=== PATIENT | female | born 1950 | race Caucasian/White ===

== ENCOUNTER 2019-10-11 11:36 | Emergency (ER) | payer MEDICARE, MEDICAID, SELFPAY ==
--- NOTE | ~2019-10-11 | XR_ITS ---
EXAMINATION: XR chest 2V DATE: 10/11/2019 12:28 INDICATION: Shortness of breath. Cough. TECHNIQUE: Frontal and lateral views of the chest were obtained. COMPARISON: None. FINDINGS: The lungs are hyperexpanded, consistent with chronic obstructive pulmonary disease. Calcifi ed pulmonary nodules and calcified hilar and mediastinal lymph nodes are consistent with old granulom atous disease. No pleural effusion or pneumothorax. The heart size is normal. Surgical clips in the r ight upper quadrant are likely from cholecystectomy. IMPRESSION: 1. Hyperexpanded lungs, consistent with chronic obstructive pulmonary disease. Reviewed, dictated and finalized at location A.
[2019-10-11 11:51] VITALS: BP 153/105; PULSE 105; RESP 16; TEMP 36.6; O2SAT 98
--- NOTE | 2019-10-11 11:59 | ED.URI ---
HPI - URI/Sore Throat General Chief Complaint: Upper Respiratory Infection Stated Complaint: CP/SOB/HX COPD Time Seen by Provider: 10/11/19 12:00 Source: patient and RN notes reviewed Mode of arrival: ambulatory Limitations: no limitations History of Present Illness HPI Narrative: This is a 69 years old female presented office for evaluation of feeling malaise and decrease energy level for the last couple day. She always have shortness of breath and cough secondary to her COPD. What is different is her decrease of energy level, appetite, and feeling malaise. Denies sick contact at home. She tried nebulizer treatment for her cough and wheezing with minimal relief. She lives alone. Denies direct contact with COVID people. Related Data Home Medications Medication Instructions Recorded Confirmed albuterol sulfate 2 puff INHALATION QID PRN 10/11/19 10/11/19 albuterol sulfate 2.5 mg INHALATION Q4H PRN 10/11/19 10/11/19 Allergies Allergy/AdvReac Type Severity Reaction Status Date / Time No Known Allergies Allergy Mild Verified 10/11/19 12:00 Review of Systems Review of Systems: Narrative: CONSTITUTIONAL: Denies fever. Reports cold and chills ENT: Denies rhinorrhea, congestion, sore throat, otalgia. CARDIOVASCULAR: Denies chest pain, palpitation. RESPIRATORY: Reports dyspnea, wheezing, cough with chest tightness/back pain when she coughs hard GASTROINTESTINAL: Denies abdominal pain, nausea, vomiting, diarrhea. SKIN: Denies rash MUSCULOSKELETAL: Denies extremities pain NEUROLOGIC: Denies lightheaded/dizziness. All other systems reviewed are negative, except as documented in HPI. PMFSH Social History Social History Gender identity (if verbalized by the patient): Female Comments At time of signature, I agree with nursing past medical, surgical, social and family history. There is no relevant family history pertinent to the presenting complaint. Exam Narrative: Exam Narrative: GENERAL: This is a well-nourished, well-developed patient, in no apparent distress. EARS: External ears normal, auditory canals clear and without drainage, TMs normal without perforation. Hearing grossly intact. NOSE: External nose normal with no obvious nasal discharge, nares without redness, no rhinorrhea. THROAT: Mucous membranes moist, posterior pharynx clear. NECK: Neck supple, non-tender without lymphadenopathy, masses or thyromegaly. CARDIOVASCULAR: Regular rate and rhythm without murmurs, gallops, or rubs. RESPIRATORY: Wheezing noted with inspiration and expiration. Breath sounds equal bilaterally. No use of accessory muscle or tachypnea. Occasional cough noted during examination. GASTROINTESTINAL: Abdomen soft, non-tender, nondistended. Bowel sounds are active. No hepato-splenomegaly, or palpable masses. No guarding. SKIN: warm, intact with no suspicious lesions or rash, good texture and turgor. NEURO: awake, alert, and oriented to person, place and time. There were no obvious focal neurologic abnormalities. Steady gait [place] Coma Scale Eye Opening: Spontaneous 4 [place] Coma Scale Motor: Obeys Commands 6 [place] Coma Scale Verbal: Oriented 5 Course Vital Signs Vital signs: Vital Signs Temperature 97.9 F 10/11/19 11:51 Pulse Rate 105 H 10/11/19 11:51 Respiratory Rate 16 10/11/19 11:51 Blood Pressure 153/105 H 10/11/19 11:51 Pulse Oximetry 98 10/11/19 11:51 Temperature 97.9 F 10/11/19 11:51 Pulse Rate 105 H 10/11/19 11:51 Respiratory Rate 16 10/11/19 11:51 Blood Pressure 153/105 H 10/11/19 11:51 Pulse Oximetry 98 10/11/19 11:51 MDM - URI/Sore Throat MDM Narrative Medical decision making narrative: Discharge instructions reviewed with patient, as well as provided in writing per nursing staff. The instructions also include specific and strict return/GO TO THE ER as well as f/u information. All questions have been answered, and the patien
== END 2019-10-11 12:40 | disposition home or self-care (01) ==
PROVIDERS: Emergency Provider Nurse Practitioner
DX: J44.1 Chronic obstructive pulmonary disease with (acute) exacerbation (principal); Z20.828 Contact with and (suspected) exposure to other viral communicable diseases
CPT/HCPCS: 71046; 99213; G0463

== ENCOUNTER 2019-10-13 06:56 | Outpatient (NON) | payer MEDICARE, MEDICAID, SELFPAY ==
[2019-10-13 20:24] LABS: SARS-CoV-2 RNA PCR Negative
== END 2019-10-13 06:57 ==
PROVIDERS: Visit Provider Nurse Practitioner
DX: Z20.828 Contact with and (suspected) exposure to other viral communicable diseases (principal); R06.00 Dyspnea, unspecified; R05 Cough
CPT/HCPCS: 87635; C9803; U0003

== ENCOUNTER 2020-01-17 10:55 | Emergency (ER) | payer MEDICARE, MEDICAID, SELFPAY ==
[2020-01-17] VITALS (17 sets, daily range): BP systolic 131–155; BP diastolic 67–103; PULSE 82–114; RESP 12–32; TEMP 36.4–36.6; O2SAT 96–100
--- NOTE | ~2020-01-17 | XR_ITS ---
EXAMINATION: XR chest 1V portable EXAM DATE: 01/17/2020 11:53 INDICATION: Shortness of breath. TECHNIQUE: Portable AP frontal chest x-ray was obtained. Comparison is made to prior examination from 10/11/2019. FINDINGS: Chronic hyperinflation. Some scattered calcified granulomata. The lungs are otherwise clear . There are no pleural effusions. The cardiomediastinal silhouette is within normal limits. There is no pneumothorax suspected. The bones and soft tissues are unremarkable. There is no significant interval change. IMPRESSION: 1. No acute cardiopulmonary findings. 2. Hyperinflation. Reviewed, dictated and finalized at location A. GN PRINTER BALLOON
--- NOTE | 2020-01-17 11:08 | ECG_ITS ---
Measurements Intervals [place] Rate: 101 P: 81 TX: 113 QRS: 67 QRSD: 80 T: 65 QT: 316 QTc: 410 Interpretive Statements SINUS TACHYCARDIA WITH SHORT TX INTERVAL VENTRICULAR PREMATURE COMPLEX BORDERLINE ST ABNORMALITY- INFERIOR LEADS BASELINE WANDER- V4-V6 BORDERLINE ECG Electronically Signed On 01-17-2020 16:58:39 [employer] IN[employer]IC[employer] by Timmy Voss D.O.
[2020-01-17 11:30] LABS: Basophils Absolute Auto 0.1 K/mm3 (0.0-0.1); Basophils Percent Auto 1.4 % (0.2-1.2); Eosinophils Absolute Auto 0.2 K/mm3 (0-0.3); Eosinophils Percent Auto 3.9 % (0-4.4); Hematocrit 39.3 % (37.0-47.0); Hemoglobin 13.6 g/dL (12.0-15.0); Immature Granulocyte Absolute 0.01 K/mm3 (0.00-0.031); Immature Granulocyte Percent A 0.2 % (0-0.5); Lymphocytes Absolute Auto 1.49 K/mm3 (0.9-3.2); Lymphocytes Percent Auto 28.9 % (18.3-44.2); Mean Corpuscular HGB Conc 34.6 g/dl (32-36); Mean Corpuscular Hemoglobin 31.2 pg (26-34); Mean Corpuscular Volume 90.1 fl (80-100); Mean Platelet Volume 11.6 fl (7.4-10.4); Monocytes Absolute Auto 0.4 K/mm3 (0.1-0.6); Monocytes Percent Auto 8.3 % (2.6-8.5); Neutrophils Percent Auto 57.3 % (45.5-73.1); Platelet Count Result 150 k/mm3 (150-375); Red Blood Count 4.36 M/mm3 (4.2-5.4); Red Cell Distribution Width 12.4 % (11.5-14.5); White Blood Count 5.2 K/mm3 (4.5-10.0)
[2020-01-17 11:45] LABS: Anion Gap 7 mmol/L (8-16); Blood Urea Nitrogen 8 mg/dL (7-17); Calcium 9.3 mg/dL (8.4-10.2); Carbon Dioxide 27 mmol/L (22-30); Chloride 103 mmol/L (98-107); Estimated CRCL calculation 55 ml/min; Estimated Glomerular Filt Rate > 60; Glucose 110 mg/dL (65-105); Sodium 137 mmol/L (137-145)
--- NOTE | 2020-01-17 12:22 | ED.SOB ---
HPI - SOB/Dyspnea General Chief Complaint: Shortness of Breath/Dyspnea Stated Complaint: copd/sob Time Seen by Provider: 01/17/20 11:18 Source: patient Mode of arrival: ambulatory Limitations: no limitations History of Present Illness HPI Narrative: THis patient is a 70 year old female smoker with history of COPD who presents for evaluation of shortness of breath. She reports she was exposed to someone with influenza 10 days ago. Around that time, she developed shortness of breathing, cough and sinus congestion. She reports over the past couple days she has more shortness of breath and body aches. She feels as if she may have the flu. She denies fever, nausea, vomiting or chest pain. Related Data Home Medications Medication Instructions Recorded Confirmed albuterol sulfate 2 puff INHALATION QID PRN 10/11/19 10/11/19 albuterol sulfate 2.5 mg INHALATION Q4H PRN 10/11/19 10/11/19 Allergies Allergy/AdvReac Type Severity Reaction Status Date / Time No Known Allergies Allergy Mild Verified 10/11/19 12:00 Review of Systems Review of Systems: All systems reviewed & are unremarkable except as noted in HPI and below Constitutional: Constitutional: Denies chills and Denies fever(s) Cardiovascular: Cardiovascular: Denies chest pain Respiratory: Respiratory: Reports cough and Reports dyspnea Gastrointestinal: Gastrointestinal: Denies abdominal pain and Denies nausea PMFSH Past Medical History Medical History (Updated 01/17/20 @ 13:51 by Beena Jose MD) COPD (chronic obstructive pulmonary disease) Social History Social History (Updated 01/17/20 @ 12:26 by Beena Jose MD) Smoking packs per day: 1 Smoking cigarettes per day: 20.0 Smoking status: Current every day smoker Gender identity (if verbalized by the patient): Female Exam Const: General: alert Orientation/consciousness: patient oriented x3 HENMT: Head: normocephalic and atraumatic Face and sinus: face symmetric Mouth: Yes Normal oral and palatal mucosa present, Yes lip normal, Yes oropharynx normal and Yes moist mucous membranes Eyes: EOM: EOMs intact bilaterally Chest: Chest palpation & inspection: normal inspection of the chest Resp: Effort & Inspection: normal respiratory effort, not labored, not tachypneic and no use of accessory muscles Auscultation: rales (left base) Cardio: Rate: regular rate Rhythm: regular rhythm Heart sounds: no murmurs GI: GI Palp: Yes Soft to palpation, No Tenderness to palpation present (GI), No Guarding due to palpation present (GI) and No Rigid due to palpation Auscultation: normal bowel sounds Skin: General skin exam: normal color Rashes: no rashes Neuro: General: patient oriented x3 and moves all extremities Extrem: General: normal to inspection Psych: Mental Status: mental status grossly normal Affect: normal affect Course Reevaluation(s) Reevaluation #1: Patient has been comfortable in ER. She is able to speak fast in complete sentences. She refused an abg. I discussed that she is under investigation for covid. She was able to ambulate without hypoxia Date: 01/17/20 Time: 13:49 Vital Signs Vital signs: Vital Signs Temperature 97.8 F 01/17/20 11:03 Pulse Rate 114 H 01/17/20 11:03 Respiratory Rate 20 01/17/20 11:03 Blood Pressure 132/103 H 01/17/20 11:03 Pulse Oximetry 100 01/17/20 11:03 Temperature 97.6 F 01/17/20 11:17 Pulse Rate 82 01/17/20 14:00 Respiratory Rate 18 01/17/20 14:00 Blood Pressure 134/70 01/17/20 14:00 Pulse Oximetry 98 01/17/20 14:00 MDM - SOB/Dyspnea Lab Data Attestation: I reviewed the patient's lab results. Result diagrams: 01/17/20 11:21 01/17/20 11:21 Labs: Lab Results 01/17/20 01/17/20 01/17/20 Range/Units 11:21 11:21 12:16 WBC 5.2 (4.5-10.0) K/mm3 RBC 4.36 (4.2-5.4) M/mm3 Hgb 13.6 (12.0-15.0) g/dL Hct 39.3 (37.0-47.0) % MCV 90.1 (80-
--- NOTE | 2020-01-17 13:04 | PCRCNOTE ---
patient refused ABG. Dr Jose notified.
[2020-01-18 22:24] LABS: SARS-CoV-2 RNA PCR Negative
== END 2020-01-17 14:15 | disposition home or self-care (01) ==
PROVIDERS: Emergency Provider General Practice
DX: J44.1 Chronic obstructive pulmonary disease with (acute) exacerbation (principal); Z20.828 Contact with and (suspected) exposure to other viral communicable diseases; F17.210 Nicotine dependence, cigarettes, uncomplicated
CPT/HCPCS: 36415; 71045; 80048; 85025; 87635; 87804; 93005; 99284; C9803; U0003

== ENCOUNTER 2020-04-16 08:24 | Emergency (ER) | payer MEDICARE, MEDICAID, SELFPAY ==
--- NOTE | ~2020-04-16 | CT_ITS ---
EXAMINATION: CT abdomen pelvis w con DATE: 04/16/2020 10:09 INDICATION: Abdominal pain. Nausea. TECHNIQUE: Computed tomography (CT) of the abdomen and pelvis was performed with 100 mL Omnipaque-350 intravenous contrast. Automated exposure control and iterative reconstruction technique were employe d. The dose-length product was 154.97 mGy-cm. COMPARISON: None FINDINGS: Patchy airspace opacities at the basilar left lower lobe consistent with pneumonia. Small calcified n odules at the right lower lobe consistent with old granulomatous disease. There is visualized inferio r portion of the heart is normal. No pericardial or pleural effusion. Cholecystectomy clips at the ga llbladder fossa. Liver, spleen, pancreas, bilateral adrenal glands and left kidney are normal. Small region of cortical scarring at the upper pole of the right kidney likely sequela of prior infection o r infarction. Bowels including the appendix are normal. Bladder, uterus and bilateral adnexa are unre markable. No free intraperitoneal gas or fluid. No pathologically enlarged abdominal or pelvic lympha denopathy. There is calcified atherosclerosis of the aorta and many of the other arteries. Mild lumba r levocurvature with moderate spondylosis. IMPRESSION: 1. Patchy airspace opacities at the basilar left lower lobe consistent with pneumonia. 2. No acute intra-abdominal/pelvic process. Reviewed, dictated and finalized at location A. F EDITOR IMPRESSION: 1. Patchy airspace opacities at the basilar left lower lobe consistent with pne umonia. 2. No acute intra-abdominal/pelvic process.
[2020-04-16 08:20] VITALS: BP 138/77; PULSE 67; RESP 20; TEMP 36.2; O2SAT 99
[2020-04-16 08:43] LABS: Basophils Percent Auto 0.2 % (0.2-1.2); Eosinophils Percent Auto 0.1 % (0-4.4); Hematocrit 35.5 % (37.0-47.0); Hemoglobin 12.6 g/dL (12.0-15.0); Immature Granulocyte Absolute 0.06 K/mm3 (0.00-0.031); Immature Granulocyte Percent A 0.4 % (0-0.5); Immature Platelet Fraction Pct 11.2 % (0.9-11.2); Lymphocytes Absolute Auto 0.52 K/mm3 (0.9-3.2); Lymphocytes Percent Auto 3.5 % (18.3-44.2); Mean Corpuscular HGB Conc 35.5 g/dl (32-36); Mean Corpuscular Hemoglobin 31.3 pg (26-34); Mean Corpuscular Volume 88.3 fl (80-100); Mean Platelet Volume 12.1 fl (7.4-10.4); Monocytes Absolute Auto 0.4 K/mm3 (0.1-0.6); Monocytes Percent Auto 2.7 % (2.6-8.5); Neutrophils Absolute Auto 13.6 K/mm3 (1.3-6.7); Neutrophils Percent Auto 93.1 % (45.5-73.1); Platelet Count Result 147 k/mm3 (150-375); Red Blood Count 4.02 M/mm3 (4.2-5.4); Red Cell Distribution Width 12.2 % (11.5-14.5); White Blood Count 14.7 K/mm3 (4.5-10.0)
[2020-04-16 08:53] LABS: Alanine Aminotransferase 15 U/L (4-35); Albumin Level 3.8 g/dL (3.5-5.1); Alkaline Phosphatase 62 U/L (38-126); Anion Gap 10 mmol/L (8-16); Aspartate Amino Transferase 24 U/L (14-36); Bilirubin,Total 0.6 mg/dL (0.2-1.3); Blood Urea Nitrogen 19 mg/dL (7-17); Calcium 9.1 mg/dL (8.4-10.2); Carbon Dioxide 23 mmol/L (22-30); Chloride 100 mmol/L (98-107); Estimated Glomerular Filt Rate > 60; Glucose 182 mg/dL (65-105); Lipase 22 U/L (23-300); Sodium 133 mmol/L (137-145)
[2020-04-16 09:13] VITALS: BP 135/79; PULSE 78; RESP 20; O2SAT 99
--- NOTE | 2020-04-16 09:23 | PC.NURSE ---
pt states unable to void at this time. states will try later
--- NOTE | 2020-04-16 09:33 | ED.ABDPAIN ---
HPI - Abdominal Pain General Chief Complaint: Abdominal Pain Stated Complaint: . Time Seen by Provider: 04/16/20 08:42 Source: patient Mode of arrival: EMS Limitations: no limitations History of Present Illness HPI narrative: A 70-year-old female comes into the emergency department today with complaints of abdominal pain. Patient states that it is going through the center of her abdomen. Patient does state that it is a sharp stabbing, unrelenting pain. She notes that it had started yesterday. Patient denies any difficulties with bowel movements or urination. She does endorse some nausea. Patient is poor historian. Related Data Home Medications Medication Instructions Recorded Confirmed albuterol sulfate 2 puff INHALATION QID PRN 10/11/19 04/16/20 albuterol sulfate 2.5 mg INHALATION Q4H PRN 10/11/19 04/16/20 Allergies Allergy/AdvReac Type Severity Reaction Status Date / Time No Known Allergies Allergy Mild Verified 04/16/20 08:23 Review of Systems Review of Systems: Narrative: CONSTITUTIONAL: Denies fever, chills, or sweats. EYES: Denies visual changes, redness, or discharge. ENT: Denies rhinorrhea, congestion, sore throat, or otalgia. CARDIOVASCULAR: Denies chest pain, palpitations, or edema. RESPIRATORY: Denies cough or dyspnea. GASTROINTESTINAL: Denies nausea, vomiting, or diarrhea. Endorses abdominal pain GENITOURINARY: Denies dysuria or hematuria. SKIN: Denies rash or itching. MUSCULOSKELETAL: Denies back pain, joint pain, or myalgia. NEUROLOGIC: Denies headache, numbness, dizziness, or weakness. PSYCHIATRIC: Denies anxiety or depression. [facility] Past Medical History Medical History COPD (chronic obstructive pulmonary disease) Social History Social History Smoking packs per day: 1 Smoking cigarettes per day: 20.0 Smoking status: Current every day smoker Gender identity (if verbalized by the patient): Female Exam Narrative: Exam Narrative: GENERAL: Thin, appears much older than stated age. HEAD: Normocephalic, atraumatic. EYES: PERRLA and EOMI. ENT: Nares clear, no rhinorrhea or epistaxis. Mucous membranes moist. NECK: Supple. No adenopathy or masses. No carotid bruits or JVD CHEST: Clear to auscultation. No respiratory distress. No wheezes rales or rhonchi HEART: Regular rate and rhythm. No murmur heard. Normal peripheral pulses. ABDOMEN: Soft, nondistended, normal active bowel sounds. Generalized tenderness to palpation, voluntary guarding EXTREMITIES: Normal range of motion. No edema. SKIN: Warm, dry, no rash. NEURO: No focal deficits. Alert and oriented x3. PSYCH: Normal mood and affect. Course Reevaluation(s) Reevaluation #1: Reevaluated patient provided care update. When I entered the room she was sleeping comfortably in the bed with no complaints. When I asked the patient if she had been having any pneumonia type symptoms she does endorse a cough. It is likely that the pneumonia irritating her diaphragm is what is causing the perceived abdominal pain. Patient will be given Omnicef and a prescription for this with plans for discharge. Time: 10:44 Vital Signs Vital signs: Vital Signs Temperature 36.2 C L 04/16/20 08:20 Pulse Rate 67 04/16/20 08:20 Respiratory Rate 20 04/16/20 08:20 Blood Pressure 138/77 04/16/20 08:20 Pulse Oximetry 99 04/16/20 08:20 Temperature 36.2 C L 04/16/20 08:20 Pulse Rate 84 04/16/20 10:19 Respiratory Rate 20 04/16/20 10:19 Blood Pressure 138/86 04/16/20 10:19 Pulse Oximetry 97 04/16/20 10:19 MDM - Abdominal Pain MDM Narrative Medical decision making narrative: A 70-year-old female came into the emergency department in brief with complaints of generalized abdominal pain. Patient had no other associated symptoms. She stated that she felt pain radiating from the top down through her belly. CT does show infiltr
[2020-04-16 10:06] LABS: Lactic Acid Reflex 1.2 mmol/L (0.7-2.1)
[2020-04-16 10:19] VITALS: BP 138/86; PULSE 84; RESP 20; O2SAT 97
[2020-04-16] MEDS: CEFDINIR 300 MG CAPSULE PO (11:04)
[2020-04-16 11:06] VITALS: BP 138/72; PULSE 78; RESP 20; O2SAT 97
== END 2020-04-16 11:08 | disposition home or self-care (01) ==
PROVIDERS: Emergency Provider Emergency Medicine
DX: J18.9 Pneumonia, unspecified organism (principal); J44.9 Chronic obstructive pulmonary disease, unspecified; F17.210 Nicotine dependence, cigarettes, uncomplicated
CPT/HCPCS: 36415; 74177; 80053; 83605; 83690; 85025; 85055; 99284; A9270; Q9967

== ENCOUNTER → 2020-05-04 14:15 | Outpatient (CLI) | payer MEDICARE, MEDICAID, SELFPAY ==
--- NOTE | ~2020-05-04 | XR_ITS ---
EXAMINATION: XR chest 2V DATE: 05/04/2020 14:51 INDICATION: Nonproductive cough and shortness of breath TECHNIQUE: PA and lateral views of the chest are obtained. COMPARISON: 01/17/2020 FINDINGS: The lungs are hyperinflated but free of acute opacities. Calcified pulmonary nodules are co nsistent with old granulomatous disease. There is no pleural effusion or pneumothorax. The cardiomedi astinal silhouette is normal. There is mild thoracic levocurvature. IMPRESSION: 1. No acute cardiopulmonary abnormality. Reviewed, dictated and finalized at location A. 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
== END ==
PROVIDERS: PCP Physician Assistant; Visit Provider Family Medicine
DX: J44.9 Chronic obstructive pulmonary disease, unspecified (principal); F17.210 Nicotine dependence, cigarettes, uncomplicated; J18.9 Pneumonia, unspecified organism
CPT/HCPCS: 71046

== ENCOUNTER 2020-06-25 09:45 | Outpatient (CLI) | payer MEDICARE, MEDICAID, SELFPAY ==
--- NOTE | ~2020-06-25 | CT_ITS ---
EXAMINATION: CT lung screening DATE: 06/25/2020 10:11 INDICATION: Personal history of tobacco dependence TECHNIQUE: Computed tomography (CT) of the chest was performed without intravenous contrast. The dose -length product was 62.53 mGy-cm. Automated exposure control and iterative reconstruction technique w ere employed. COMPARISON: Chest x-ray dated 05/04/2020 FINDINGS: There are calcified mediastinal, right hilar lymph nodes as well as scattered calcified par enchymal nodules, consistent with chronic granulomatous disease. No significant pleural or pericardia l effusion. Mild emphysema. There is peribronchial thickening in the right lower lobe peripherally. T here are a few small 2-3 mm nodules, for instance in the left lower lobe, image 76. No endobronchial lesions. No pneumothorax. Mild emphysema. Mild thoracic spondylosis. No lytic or blastic lesions. IMPRESSION: 1. Lung-RADS category 2: Benign appearance or behavior. Continue annual screening with noncontrast lo w-dose chest CT in 12 months. Reviewed, dictated and finalized at location B. IMPRESSION: 1. Lung-RADS category 2: Benign appearance or behavior. Continue annual screeni ng with noncontrast low-dose chest CT in 12 months.
== END 2020-06-25 09:46 | disposition home or self-care (01) ==
LOC: ANHIMG 09:47
PROVIDERS: PCP Physician Assistant; Visit Provider Physician Assistant
DX: Z12.2 Encounter for screening for malignant neoplasm of respiratory organs (principal); Z87.891 Personal history of nicotine dependence
CPT/HCPCS: 71271

== ENCOUNTER 2020-07-05 15:11 | Emergency (ER) | payer MEDICARE, MEDICAID, SELFPAY ==
--- NOTE | ~2020-07-05 | XR_ITS ---
EXAMINATION: XR chest 1V portable DATE: 07/05/2020 15:48 INDICATION: Shortness of breath. Cough. TECHNIQUE: A single frontal view of the chest was obtained. COMPARISON: Chest 2 views 05/04/2020, chest CT 06/25/2020 FINDINGS: The lungs are hyperexpanded with lucencies, consistent with emphysema. Calcified pulmonary nodules and calcified hilar and mediastinal lymph nodes are consistent with old granulomatous disease . There are airspace opacities at the lung bases. No pleural effusion or pneumothorax. The heart size is normal. IMPRESSION: 1. Airspace opacities at the lung bases, consistent with atelectasis versus pneumonia. 2. Emphysema. Reviewed, dictated and finalized at location B. IMPRESSION: 1. Airspace opacities at the lung bases, consistent with atelectasis versus pne umonia. 2. Emphysema.
[2020-07-05 15:25] VITALS: BP 131/93; PULSE 108; RESP 24; TEMP 36.8; O2SAT 100
--- NOTE | 2020-07-05 15:25 | ECG_ITS ---
Measurements Intervals [place] Rate: 92 P: 82 MD: 121 QRS: 60 QRSD: 78 T: -90 QT: 306 QTc: 379 Interpretive Statements SINUS RHYTHM POSSIBLE LEFT ATRIAL ENLARGEMENT INCOMPLETE RIGHT BUNDLE BRANCH BLOCK ST-T WAVE ABNORMALITY IN ANT/INF LEADS- CONSIDER ISCHEMIA ABNORMAL ECG Electronically Signed On 07-05-2020 18:23:18 CDT by Timmy Voss D.O.
--- NOTE | 2020-07-05 15:27 | ED.GENADULT ---
HPI - General Adult General Chief complaint: Shortness of Breath/Dyspnea Stated complaint: SOB Time Seen by Provider: 07/05/20 15:14 Source: patient History of Present Illness HPI narrative: Patient is a 70 y/o female complaining of severe SOB for last 2 weeks. She states that Nebulizer usually helps. She also has some chest pain and cough. She has no fever. She has history of COPD. She has not had COVID vaccine yet. She states that she was seen in PCP's office earlier today and sent here. Related Data Home Medications Medication Instructions Recorded Confirmed albuterol sulfate 2 puff INHALATION QID PRN 10/11/19 04/16/20 albuterol sulfate 2.5 mg INHALATION Q4H PRN 10/11/19 04/16/20 Allergies Allergy/AdvReac Type Severity Reaction Status Date / Time No Known Allergies Allergy Mild Verified 07/05/20 15:32 Review of Systems Constitutional: Constitutional: Denies chills, Denies fever(s), Denies headache(s) and Denies weakness Eyes: Eyes: Denies blurry vision ENT: Denies headache(s) and Denies neck pain Cardiovascular: Cardiovascular: Reports chest pain and Reports dyspnea Respiratory: Respiratory: Reports cough and Reports dyspnea Gastrointestinal: Gastrointestinal: Denies abdominal pain, Denies diarrhea, Denies nausea and Denies vomiting Genitourinary: Genitourinary: Denies hematuria and Denies dysuria Musculoskeletal: Musculoskeletal: Denies back pain and Denies neck pain Neurologic: Denies headache(s) and Denies weakness PMFSH Past Medical History Medical History COPD (chronic obstructive pulmonary disease) Social History Social History Smoking packs per day: 1 Smoking cigarettes per day: 20.0 Smoking status: Current every day smoker Gender identity (if verbalized by the patient): Female Exam Const: General: no acute distress and well developed Orientation/consciousness: oriented to person, oriented to place, oriented to time and patient oriented x3 HENMT: Head: normocephalic Ears: external ears normal General nose exam: Normal external nose present Eyes: General: appearance normal, both eyes and all related structures Conjunctivae: conjunctivae normal Neck: Neck: normal visual inspection and full ROM Chest: Chest palpation & inspection: normal inspection of the chest and no tenderness Resp: Effort & Inspection: normal respiratory effort and able to speak in complete sentences Cardio: Rate: regular rate Rhythm: regular rhythm GI: GI Palp: No abdominal tenderness and Yes Soft to palpation Skin: General skin exam: normal color and turgor normal Neuro: General: oriented to person, oriented to place, oriented to time and patient oriented x3 Cognition (Neuro): normal cognition Extrem: General: normal to inspection, full ROM and no pedal edema Psych: Appearance: grossly normal Mental Status: mental status grossly normal Affect: normal affect Course Reevaluation(s) Reevaluation #1: Patient declined ABG, venous gas was done. Date: 07/05/20 Vital Signs Vital signs: Vital Signs Temperature 36.8 C 07/05/20 15:25 Pulse Rate 108 H 07/05/20 15:25 Respiratory Rate 24 H 07/05/20 15:25 Blood Pressure 131/93 H 07/05/20 15:25 Pulse Oximetry 100 07/05/20 15:25 Temperature 36.8 C 07/05/20 15:25 Pulse Rate 91 07/05/20 21:06 Respiratory Rate 24 H 07/05/20 21:06 Blood Pressure 133/79 07/05/20 21:06 Pulse Oximetry 94 07/05/20 21:06 Medical Decision Making Vital Signs Vital Signs: Vital Signs Temperature 36.8 C 07/05/20 15:25 Pulse Rate 108 H 07/05/20 15:25 Respiratory Rate 24 H 07/05/20 15:25 Blood Pressure 131/93 H 07/05/20 15:25 Pulse Oximetry 100 07/05/20 15:25 Temperature 36.8 C 07/05/20 15:25 Pulse Rate 91 07/05/20 21:06 Respiratory Rate 24 H 07/05/20 21:06 Blood Pressure 133/79 07/05/20 21:06 Pulse Oximetry
--- NOTE | 2020-07-05 15:35 | PCRCNOTE ---
PT. REFUSED ABG; DR. SANFORD AND PT.'S NURSE BOTH NOTIFIED.
--- NOTE | 2020-07-05 15:36 | PC.NURSE ---
pt refused ABG - Dr Burleson made aware
[2020-07-05 16:03] LABS: Basophils Absolute Auto 0.1 K/mm3 (0.0-0.1); Basophils Percent Auto 1.1 % (0.2-1.2); Eosinophils Absolute Auto 0.3 K/mm3 (0-0.3); Eosinophils Percent Auto 5.9 % (0-4.4); Hematocrit 38.9 % (37.0-47.0); Hemoglobin 13.1 g/dL (12.0-15.0); Immature Granulocyte Absolute 0.02 K/mm3 (0.00-0.031); Immature Granulocyte Percent A 0.4 % (0-0.5); Lymphocytes Absolute Auto 1.34 K/mm3 (0.9-3.2); Lymphocytes Percent Auto 24.9 % (18.3-44.2); Mean Corpuscular HGB Conc 33.7 g/dl (32-36); Mean Corpuscular Hemoglobin 30.4 pg (26-34); Mean Corpuscular Volume 90.3 fl (80-100); Mean Platelet Volume 11.2 fl (7.4-10.4); Monocytes Absolute Auto 0.5 K/mm3 (0.1-0.6); Monocytes Percent Auto 8.4 % (2.6-8.5); Neutrophils Absolute Auto 3.2 K/mm3 (1.3-6.7); Neutrophils Percent Auto 59.3 % (45.5-73.1); Platelet Count Result 145 k/mm3 (150-375); Red Blood Count 4.31 M/mm3 (4.2-5.4); Red Cell Distribution Width 12.5 % (11.5-14.5); White Blood Count 5.4 K/mm3 (4.5-10.0)
[2020-07-05 16:17] LABS: Alanine Aminotransferase 14 U/L (4-35); Albumin Level 4.1 g/dL (3.5-5.1); Alkaline Phosphatase 58 U/L (38-126); Anion Gap 4 mmol/L (8-16); Aspartate Amino Transferase 26 U/L (14-36); Bilirubin,Total 0.4 mg/dL (0.2-1.3); Blood Urea Nitrogen 11 mg/dL (7-17); Calcium 9.7 mg/dL (8.4-10.2); Carbon Dioxide 28 mmol/L (22-30); Chloride 102 mmol/L (98-107); Estimated Glomerular Filt Rate > 60; Glucose 101 mg/dL (65-105); Potassium 4.1 mmol/L (3.4-5.0); Sodium 134 mmol/L (137-145)
[2020-07-05 16:18] LABS: D Dimer 0.31 ug/mL (<0.48)
[2020-07-05 16:26] LABS: NT Pro B Type Natriuretic Pept 234 pg/mL (5-100)
[2020-07-05] MEDS: methylPREDNISolone SOD SUCC 125 MG VIAL IV PUSH (16:28)
[2020-07-05 16:29] LABS: Troponin I < 0.012 ng/mL (0.000-0.034)
[2020-07-05 16:39] LABS: Device NASAL CANNULA; Fractional Inspired Oxygen 32 %; HCO3 VBG 24.4 mEq/l (24.0-30.0); PCO2 VBG 40.4 mmHg (42.0-48.0); PO2 VBG 54.6 mmHg (35.0-45.0); pH VBG 7.399 (7.300-7.400)
[2020-07-05 17:41] VITALS: BP 130/81; PULSE 95; RESP 22; O2SAT 94
--- NOTE | 2020-07-05 18:00 | PC.NURSE ---
Pt maintaining RA sats ~91-92%, continuing coughing fits, loud rhonchi. Dr Burleson aware, no new orders
--- NOTE | 2020-07-05 18:14 | PC.NURSE ---
Pt ambulated to BR slow steady gait, barking coughing fit, pursed lip breathing and tripoding. On return to room sats 97% on RA, HR up to 120's. 3L NC placed for comfort
[2020-07-05 20:09] LABS: Troponin I < 0.012 ng/mL (0.000-0.034)
[2020-07-05 21:06] VITALS: BP 133/79; PULSE 91; RESP 24; O2SAT 94
[2020-07-06 18:55] LABS: SARS-CoV-2 RNA PCR Negative
== END 2020-07-05 21:08 | disposition home or self-care (01) ==
PROVIDERS: Emergency Provider Emergency Medicine; PCP Physician Assistant
DX: J44.1 Chronic obstructive pulmonary disease with (acute) exacerbation (principal); Z20.822 Contact with and (suspected) exposure to COVID-19; I45.10 Unspecified right bundle-branch block; R94.31 Abnormal electrocardiogram [ECG] [EKG]; F17.210 Nicotine dependence, cigarettes, uncomplicated
CPT/HCPCS: 36415; 71045; 80053; 82803; 83880; 84484; 85025; 85380; 93005; 96374; 99284; C9803; J2930; U0003; U0005

== ENCOUNTER 2020-10-07 14:16 | Outpatient (CLI) | payer MEDICARE, MEDICAID, SELFPAY ==
[2020-10-07 15:22] LABS: Basophils Absolute Auto 0.1 K/mm3 (0.0-0.1); Basophils Percent Auto 1.4 % (0.2-1.2); Eosinophils Absolute Auto 0.3 K/mm3 (0-0.3); Hematocrit 41.6 % (37.0-47.0); Immature Granulocyte Absolute 0.01 K/mm3 (0.00-0.031); Immature Granulocyte Percent A 0.2 % (0-0.5); Lymphocytes Absolute Auto 1.23 K/mm3 (0.9-3.2); Lymphocytes Percent Auto 21.8 % (18.3-44.2); Mean Corpuscular HGB Conc 33.7 g/dl (32-36); Mean Corpuscular Volume 89.1 fl (80-100); Mean Platelet Volume 11.9 fl (7.4-10.4); Monocytes Absolute Auto 0.4 K/mm3 (0.1-0.6); Monocytes Percent Auto 7.3 % (2.6-8.5); Neutrophils Absolute Auto 3.6 K/mm3 (1.3-6.7); Neutrophils Percent Auto 63.3 % (45.5-73.1); Platelet Count Result 161 k/mm3 (150-375); Red Blood Count 4.67 M/mm3 (4.2-5.4); Red Cell Distribution Width 12.6 % (11.5-14.5); White Blood Count 5.7 K/mm3 (4.5-10.0)
[2020-10-07 15:32] LABS: Sodium 137 mmol/L (137-145)
[2020-10-07 15:38] LABS: Alanine Aminotransferase 15 U/L (4-35); Albumin Level 4.5 g/dL (3.5-5.1); Alkaline Phosphatase 68 U/L (38-126); Anion Gap 6 mmol/L (8-16); Aspartate Amino Transferase 27 U/L (14-36); Bilirubin,Total 0.6 mg/dL (0.2-1.3); Blood Urea Nitrogen 13 mg/dL (7-17); Calcium 9.9 mg/dL (8.4-10.2); Carbon Dioxide 28 mmol/L (22-30); Chloride 103 mmol/L (98-107); Estimated Glomerular Filt Rate > 60; Glucose 107 mg/dL (65-110); Potassium 4.1 mmol/L (3.4-5.0)
[2020-10-07 16:01] LABS: Free T4 Free Thyroxine 1.24 ng/mL (0.78-2.19)
== END 2020-10-07 14:17 | disposition home or self-care (01) ==
PROVIDERS: PCP Physician Assistant; Visit Provider Physician Assistant
DX: M54.2 Cervicalgia (principal); R13.10 Dysphagia, unspecified
CPT/HCPCS: 36415; 80053; 84439; 84443; 85025

== ENCOUNTER 2020-10-22 17:49 | Outpatient (CLI) | payer MEDICARE, MEDICAID, SELFPAY ==
--- NOTE | ~2020-10-22 | XR_ITS ---
XR chest 2V DATE: 10/22/2020 18:26 INDICATION: Sternal chest pain. COPD. TECHNIQUE: AP and lateral views COMPARISON: 07/05/2020 portable AP chest FINDINGS: There is bilateral hyperinflation consistent with clinical diagnosis of COPD. No pulmonary infiltrate or consolidation, pleural effusion or pulmonary vascular congestion or pneumo thorax. There is old pulmonary granulomatous disease, calcified splenic granulomas. Heart size is within normal limits. Is aortic calcification and mild tortuosity. Diffuse osteopenia. Dextroscoliosis of the thoracic spine. IMPRESSION: COPD No active cardiopulmonary disease Reviewed, dictated and finalized at location A.
== END 2020-10-22 17:50 | disposition home or self-care (01) ==
PROVIDERS: PCP Physician Assistant; Visit Provider Physician Assistant
DX: J44.0 Chronic obstructive pulmonary disease with (acute) lower respiratory infection (principal)
CPT/HCPCS: 71046

== ENCOUNTER 2020-10-27 11:58 | Emergency (ER) | payer MEDICARE, MEDICAID, SELFPAY ==
[2020-10-27] VITALS (11 sets, daily range): BP systolic 105–146; BP diastolic 67–87; PULSE 65–93; RESP 9–28; TEMP 36.2; O2SAT 95–100
--- NOTE | ~2020-10-27 | XR_ITS ---
EXAMINATION: XR chest 2V DATE: 10/27/2020 12:21 INDICATION: Chest pain and nausea TECHNIQUE: PA and lateral views of the chest are obtained. COMPARISON: 10/22/2020 FINDINGS: The lungs are free of acute opacities. There is no pleural effusion or pneumothorax. The ca rdiomediastinal silhouette is normal. There is mild thoracic spondylosis. Calcified pulmonary nodules are consistent with old granulomatous disease. IMPRESSION: 1. No acute cardiopulmonary abnormality. Reviewed, dictated and finalized at location A.
--- NOTE | ~2020-10-27 | CT_ITS ---
EXAMINATION: CT abdomen pelvis w con DATE: 10/27/2020 15:19 INDICATION: Right abdominal pain. Nausea. TECHNIQUE: Computed tomography (CT) of the abdomen and pelvis was performed with 100 mL Omnipaque 350 intravenous contrast. Automated exposure control and iterative reconstruction technique were employe d. The dose-length product was 194.31 mGy-cm. COMPARISON: CT abdomen and pelvis 04/16/2020 FINDINGS: The visualized portions of the lung bases demonstrate mild atelectasis. Calcified bilateral lung nodules are consistent with old granulomatous disease. No pleural effusion. The heart size is n ormal. No pericardial effusion. The liver is normal. There are changes of cholecystectomy. Calcificat ions in the spleen are consistent with old granulomatous disease. The pancreas and adrenal glands are normal. There is focal cortical thinning in right kidney. Left kidney is normal. The appendix is nor mal. There are no dilated loops of bowel. There are no pathologically enlarged lymph nodes. There is no free intraperitoneal fluid. There is lumbar levocurvature and severe spondylosis. IMPRESSION: 1. No etiology for the patient's symptoms. Reviewed, dictated and finalized at location A.
--- NOTE | ~2020-10-27 | US_ITS ---
EXAMINATION: US abdomen limited EXAM DATE: 10/27/2020 13:41 INDICATION: Abdominal pain. TECHNIQUE: Multiple grayscale and Doppler images of the abdomen right upper quadrant were obtained (b y a technologist who performed the scan) and subsequently reviewed. There is no prior study for catalino knutson. FINDINGS: The pancreatic head and body are normal in appearance. The pancreatic tail is not visualized. The l iver has normal echogenicity and contour. There are no focal liver lesions identified. There is no evidence of intrahepatic biliary duct dilation. Portal venous flow was seen in the hepatopedal, nor mal direction and has normal Doppler waveform. No right-sided hydronephrosis. Common bile duct measures 4 mm, which is normal. The gallbladder fossa is unremarkable. IMPRESSION: 1. Unremarkable abdominal ultrasound exam. Reviewed, dictated and finalized at location B.
--- NOTE | 2020-10-27 12:01 | ECG_ITS ---
Measurements Intervals [place] Rate: 79 P: 73 TX: 124 QRS: 46 QRSD: 81 T: 55 QT: 373 QTc: 430 Interpretive Statements SINUS RHYTHM BORDERLINE T WAVE ABNORMALITY- ANT/INF LEADS BORDERLINE ECG Electronically Signed On 10-27-2020 12:06:37 CDT by Timmy Voss D.O.
[2020-10-27 12:24] LABS: Basophils Absolute Auto 0.1 K/mm3 (0.0-0.1); Basophils Percent Auto 1.5 % (0.2-1.2); Eosinophils Absolute Auto 0.3 K/mm3 (0-0.3); Eosinophils Percent Auto 7.2 % (0-4.4); Hematocrit 40.1 % (37.0-47.0); Hemoglobin 13.6 g/dL (12.0-15.0); Immature Granulocyte Absolute 0.01 K/mm3 (0.00-0.031); Immature Granulocyte Percent A 0.2 % (0-0.5); Lymphocytes Absolute Auto 1.63 K/mm3 (0.9-3.2); Lymphocytes Percent Auto 34.6 % (18.3-44.2); Mean Corpuscular HGB Conc 33.9 g/dl (32-36); Mean Corpuscular Hemoglobin 30.6 pg (26-34); Mean Corpuscular Volume 90.3 fl (80-100); Mean Platelet Volume 11.4 fl (7.4-10.4); Monocytes Absolute Auto 0.4 K/mm3 (0.1-0.6); Monocytes Percent Auto 7.6 % (2.6-8.5); Neutrophils Absolute Auto 2.3 K/mm3 (1.3-6.7); Neutrophils Percent Auto 48.9 % (45.5-73.1); Platelet Count Result 143 k/mm3 (150-375); Red Blood Count 4.44 M/mm3 (4.2-5.4); Red Cell Distribution Width 12.4 % (11.5-14.5); White Blood Count 4.7 K/mm3 (4.5-10.0)
[2020-10-27 12:34] LABS: Partial Thromboplastin Time 26.6 SECONDS (22.3-36.8); Prothrombin Time 12.8 Seconds (11.1-14.7)
[2020-10-27 12:38] LABS: Anion Gap 9 mmol/L (8-16); Blood Urea Nitrogen 14 mg/dL (7-17); Calcium 9.7 mg/dL (8.4-10.2); Carbon Dioxide 25 mmol/L (22-30); Chloride 100 mmol/L (98-107); Estimated Glomerular Filt Rate > 60; Glucose 121 mg/dL (65-110); Sodium 134 mmol/L (137-145)
[2020-10-27 12:49] LABS: Troponin I < 0.012 ng/mL (0.000-0.034)
--- NOTE | 2020-10-27 13:11 | ED.GENADULT ---
HPI - General Adult General Chief complaint: Chest Pain Stated complaint: CP/Sweating Time Seen by Provider: 10/27/20 12:53 Source: patient and RN notes reviewed Mode of arrival: ambulatory Limitations: no limitations History of Present Illness HPI narrative: This is a 70 year old female with history of emphysema who presents for evaluation of right lower chest pain. Patient reports constant right lower chest, right upper abdominal pain for 1 week. She reports her pain is constant and it occasionally worsens making her diaphoretic. She describes pain as she feels like its bruised but she denies trauma. She has a chronic cough. She reports poor appetite due to her pain but she does not think pain is worse with eating. She denies dysuria or hematuria. She does reports blood when she wipes after a bowel movement intermittently. She has taken Tylenol and hydrocodone today for her pain without relief. Related Data Home Medications Medication Instructions Recorded Confirmed albuterol sulfate 10/27/20 budesonide-formoterol [Symbicort] INHALATION 10/27/20 Allergies Allergy/AdvReac Type Severity Reaction Status Date / Time No Known Allergies Allergy Mild Verified 07/05/20 15:32 Review of Systems Review of Systems: All systems reviewed & are unremarkable except as noted in HPI and below PMFSH Past Medical History Medical History (Updated 10/27/20 @ 17:13 by Beena Jose MD) COPD (chronic obstructive pulmonary disease) Surgical History Surgical History (Updated 10/27/20 @ 13:15 by Beena Jose MD) H/O tubal ligation Social History Social History Smoking packs per day: 1 Smoking cigarettes per day: 20.0 Smoking status: Current every day smoker Gender identity (if verbalized by the patient): Female Exam Const: General: alert and ill appearing Nutritional Appearance: thin Orientation/consciousness: patient oriented x3 Eyes: Pupils: Equal, round and reactive pupils present EOM: EOMs intact bilaterally Chest: Chest palpation & inspection: tenderness rib (right posterior) Resp: Effort & Inspection: normal respiratory effort and no retractions Auscultation: clear to auscultation bilaterally Cardio: Rate: regular rate Rhythm: regular rhythm Heart sounds: no murmurs GI: GI Palp: Yes Soft to palpation, Yes Tenderness to palpation present (GI) (RUQ, right CVA), No Guarding due to palpation present (GI) and No Rigid due to palpation Auscultation: normal bowel sounds Skin: General skin exam: normal color Rashes: no rashes Neuro: General: patient oriented x3, moves all extremities and CN's II-XI intact bilaterally Extrem: General: normal to inspection and no pedal edema Psych: Mental Status: mental status grossly normal Affect: normal affect Course Reevaluation(s) Reevaluation #1: I discussed with patient that her evaluation is unremarkable. HEr pain was located right flank . No rash at this time to suggest shingles. Labs are unremarkable. She states her pain has resolved. Date: 10/27/20 Time: 17:01 Reevaluation #2: Nursing report patient feels better after phenergan and ready for discharge home. She has nausea and vomiting likely related to IV pain medication given during ER stay. Date: 10/27/20 Time: 19:00 Vital Signs Vital signs: Vital Signs Temperature 97.1 F L 10/27/20 12:46 Pulse Rate 85 10/27/20 12:46 Respiratory Rate 16 10/27/20 12:46 Blood Pressure 135/76 10/27/20 12:46 Pulse Oximetry 98 10/27/20 12:46 Temperature 97.1 F L 10/27/20 12:46 Pulse Rate 86 10/27/20 20:03 Respiratory Rate 18 10/27/20 20:03 Blood Pressure 126/76 10/27/20 20:03 Pulse Oximetry 99 10/27/20 20:03 Medical Decision Making Vital Signs Vital Signs: Vital Signs Temperature 97.1 F L 10/27/20 12:46 Pulse Rate 85 10/27/20 12:46 Respiratory Rate 16 10/27/20 12:46 Blood Pressure 13
[2020-10-27] MEDS: ONDANSETRON INJ 4 MG/2 ML VIAL IV PUSH ×2 (13:48→17:40)
[2020-10-27] MEDS: HYDROmorphone HCL INJ (*CRX) 1 MG/ML SYR IV PUSH (13:48)
[2020-10-27 14:10] LABS: D Dimer 0.32 ug/mL (<0.48)
[2020-10-27 14:45] LABS: Alanine Aminotransferase 15 U/L (4-35); Alkaline Phosphatase 60 U/L (38-126); Aspartate Amino Transferase 26 U/L (14-36); Bilirubin,Total 0.5 mg/dL (0.2-1.3); Lipase 45 U/L (23-300)
[2020-10-27 16:31] LABS: Add Urine Microscopic? YES; Appearance Urine Clear (Clear); Bacteria Urine Trace /hpf; Bilirubin Urine Negative (Negative); Blood Urine Negative (Negative); Color Urine Yellow (Yellow); Glucose Urine UA Negative (Negative); Ketones Urine Trace mg/dL (Negative); Leukocyte Esterase Ur 2+ LEU/UL (Negative); Mucus Urine Few /lpf; Nitrate Urine Negative (Negative); Protein Urine Negative (Negative); RBC Urine 0-2 /hpf (0-2); Squamous Epithelial Cell Urine Many /hpf (Few); Urobilinogen Urine Negative mg/dL (<2.0); WBC Urine 16-20 /hpf
[2020-10-27 16:33] LABS: Specific Grav Ur 1.055 (1.001-1.035)
[2020-10-27 16:49] LABS: Troponin I < 0.012 ng/mL (0.000-0.034)
[2020-10-27] MEDS: PROMETHAZINE HCL 25 MG/ML AMPUL 12.5 MG IV PUSH (18:51)
--- NOTE | 2020-10-27 19:23 | PC.NURSE ---
Report received and care of pt assumed at this time.
== END 2020-10-27 20:04 | disposition home or self-care (01) ==
PROVIDERS: Emergency Medicine; Emergency Provider General Practice; PCP Physician Assistant
DX: N39.0 Urinary tract infection, site not specified (principal); R10.9 Unspecified abdominal pain; J44.9 Chronic obstructive pulmonary disease, unspecified
CPT/HCPCS: 36415; 71046; 74177; 76705; 80048; 80076; 81001; 83690; 84484; 85025; 85380; 85610; 85730; 87086; 93005; 96374; 96375; 96376; 99284; J1170; J2405; J2550; Q9967

== ENCOUNTER 2021-02-09 12:27 | Outpatient (CLI) | payer MEDICARE, MEDICAID, SELFPAY ==
--- NOTE | 2021-02-09 16:38 | WPDSIXMINUTE ---
Six Minute Walk Procedure Procedure Performed Pulmonary Stress Test (6 min walk) Six Minute Walk This is a 6 minute walk test. The test was performed and interpreted in accordance with the 2014 ERS/ATS task force guidelines. of note the patient's stopped the walk after 3 minutes due to shortness of breath. Findings: The patient's resting room air oxygen saturation measured by pulse oximetry was 95% and heart rate was 86 bpm. Patient ambulated for 213 meters and oxygen saturation remained 93 to 98%. Heart rate at the end of the study was 116 bpm. The patient did not qualify for supplemental oxygen at rest or with ambulation. There are no prior studies for comparison.
--- NOTE | 2021-02-09 16:39 | WPDPFTINT ---
PFT Procedure Performed PFT Procedure Performed Plethysmography (Lung Vol) Diffusing Cap (DLCO) Flow Vol Loop Spirometry w/o Bronchodil PFT Interpretation This is a pulmonary function test with spirometry, plethysmography and diffusing capacity. The test was performed and results interpreted in accordance with the 2019 and 2005 ATS/ERS Task Force guidelines respectively using the Global Lung Function Initiative-2012 reference equations. Patient demonstrated good effort and cooperation. Reproducibility criteria were met. The quality of the spirometry maneuver was Grade A. No bronchodilator was given as the patient used her nebulizers 2 hours before for this testing. Findings: Spirometry: There is decreased maximal expiratory airflow at all lung volumes with concave expiratory flow tracing. The the contour the inspiratory flow tracing is normal. The FVC is 1.56 L, 64% predicted. The FEV1 is 0.74 L, 39% predicted. The FEV1: FVC ratio is 47%. Plethysmography: The total lung capacity is 6.77 L, 153% predicted. The functional residual capacity is 5.40 L, 216% predicted. The residual volume is 5.01 L, 253% predicted. Diffusing capacity: The absolute diffusion capacity is 6.6, 35% predicted. The diffusing capacity corrected for alveolar volume is 2.18, 49% predicted. Impression: There is a severe obstructive abnormality. The increase in residual volume is consistent with air trapping from an obstructive abnormality. Hyperinflation is present is demonstrated by the increase in functional residual capacity and total lung capacity and is consistent with an obstructive abnormality. The absolute diffusing capacity is severly decreased and remains moderately decreased when corrected for alveolar volume. There are no prior studies for comparison
--- NOTE | 2021-02-09 16:44 | WPDSIXMINUTE ---
Six Minute Walk Procedure Procedure Performed Pulmonary Stress Test (6 min walk) Six Minute Walk This is a 6 minute walk test. The test was performed and interpreted in accordance with the 2014 ERS/ATS task force guidelines. Findings: The patient's resting room air oxygen saturation measured by pulse oximetry was 94% and heart rate was 79 bpm. Patient ambulated for 274 meters and oxygen saturation remained 89 to 90%. Heart rate at the end of the study was 86 bpm. The patient did not qualify for supplemental oxygen at rest or with ambulation. There are no prior studies for comparison.
--- NOTE | 2021-02-09 16:45 | P.PCNPFT_ITS ---
PFT Procedure Performed PFT Procedure Performed Spirometry with Pre/Post Bronchodilator Plethysmography (Lung Vol) Diffusing Cap (DLCO) Flow Vol Loop PFT Interpretation This is a pulmonary function test with pre and post-bronchodilator spirometry, plethysmography and diffusing capacity. The test was performed and results interpreted in accordance with the 2019 and 2005 ATS/ERS Task Force guidelines respectively using the Global Lung Function Initiative-2012 reference equations. Patient demonstrated good effort and cooperation. Reproducibility criteria were met. The quality of the pre bronchodilator spirometry maneuver was Grade A and post bronchodilator spirometry maneuver was Grade A. Findings: Spirometry: There is decreased maximal expiratory airflow at all lung volumes with concave expiratory flow tracing. The contour the inspiratory flow tracing is normal. The pre bronchodilator FVC is 1.93 L, 65% predicted. The pre bronchodilator FEV1 is 1.07 L, 47% predicted. The FEV1: FVC ratio is 56%. The post bronchodilator FVC is 2.25 L, representing a 17% increase. The post bronchodilator FEV1 is 1.21 L, representing a 13% increase. The post bronchodilator FEV1: FVC ratio is 54%. Plethysmography: The total lung capacity is 5.79 L, 111% predicted. Functional residual capacity is 4.13 L, 139% predicted. The residual volume is 3.86 L, 173% predicted. Diffusing capacity: The absolute diffusion capacity is 10.8, 52% predicted. Diffusing capacity corrected for alveolar volume is 2.95, 70% predicted. Impression: There is a severe obstructive abnormality with significant improvement after inhaling a single dose of albuterol. The increase in residual volume is consistent with air trapping from an obstructive abnormality. Hyperinflation is present is demonstrated by the increase in functional residual capacity and is consistent with an obstructive abnormality. The absolute diffu sing capacity is moderately decreased and normalizes when corrected for alveolar volume. There are no prior studies for comparison
== END 2021-02-09 12:28 | disposition home or self-care (01) ==
LOC: ANHPFT 12:31
PROVIDERS: PCP Physician Assistant; Visit Provider Internal Medicine Pulmonary Disease
DX: J44.9 Chronic obstructive pulmonary disease, unspecified (principal); R94.2 Abnormal results of pulmonary function studies
CPT/HCPCS: 94375; 94618; 94726; 94729

== ENCOUNTER 2021-03-01 06:40 | Inpatient (IN) | payer MEDICARE, MEDICAID, SELFPAY ==
[2021-03-01] VITALS (26 sets, daily range): BP systolic 99–136; BP diastolic 67–98; PULSE 67–87; RESP 14–33; TEMP 36–36.5; O2SAT 90–100
--- NOTE | ~2021-03-01 | XR_ITS ---
EXAMINATION: XR chest 1V portable EXAM DATE: 03/01/2021 15:33 INDICATION: Cough and shortness of breath. TECHNIQUE: Portable AP frontal chest x-ray was obtained. Comparison is made to prior examination from 10/27/2020. FINDINGS: The lungs are hyperinflated which can be seen with chronic obstructive pulmonary disease (a clinical diagnosis of functional impairment), but is not diagnostic of it. No confluent consolidatio n, pneumothorax or pleural effusion suspected. There is no pneumothorax suspected. There are no pleur al effusions. There are no osseous abnormalities identified. IMPRESSION: Chronic severe hyperinflation. Reviewed, dictated and finalized at location A. ETING PROFESSOR
--- NOTE | 2021-03-01 14:33 | ECG_ITS ---
Measurements Intervals [place] Rate: 77 P: 76 CA: 115 QRS: 62 QRSD: 84 T: 75 QT: 393 QTc: 445 Interpretive Statements SINUS RHYTHM WITH SHORT CA INTERVAL INCOMPLETE RIGHT BUNDLE BRANCH BLOCK DELAYED PRECORDIAL R/S TRANSITION BORDERLINE T WAVE ABNORMALITY- ANT/HIGH LAT LEADS BASELINE ARTIFACT- I, II, III, AVR, AVF BORDERLINE ECG Electronically Signed On 03-01-2021 15:00:18 CLERK RATING by Timmy Voss D.O.
--- NOTE | 2021-03-01 14:54 | ED.GENADULT ---
HPI - General Adult General Chief complaint: Weakness Stated complaint: weakness, fever, N/V, bodyaches X1 week Time Seen by Provider: 03/01/21 14:33 Source: patient and RN notes reviewed History of Present Illness HPI narrative: Patient is a 71 y/o female complaining of increasing SOB, cough, vomiting, diarrhea and body ache. She states that her SOB is moderate. Inhaler helps with her symptoms. She has history of COPD. She states that multiple family members tested positive for COVID recently. She has not been vaccinated against COVID. Related Data Home Medications Medication Instructions Recorded Confirmed albuterol sulfate 2.5 mg INHALATION PRN PRN 10/27/20 03/02/21 budesonide-formoterol [Symbicort] 2 puff INHALATION Q12H 03/02/21 03/02/21 Allergies Allergy/AdvReac Type Severity Reaction Status Date / Time No Known Allergies Allergy Mild Verified 03/01/21 07:11 Review of Systems Constitutional: Constitutional: Denies chills, Denies fever(s), Reports headache(s) and Denies weakness Eyes: Eyes: Denies blurry vision ENT: Reports headache(s) and Denies neck pain Cardiovascular: Cardiovascular: Denies chest pain and Reports dyspnea Respiratory: Respiratory: Reports cough and Reports dyspnea Gastrointestinal: Gastrointestinal: Denies abdominal pain, Reports diarrhea, Denies nausea and Reports vomiting Genitourinary: Genitourinary: Denies hematuria and Denies dysuria Musculoskeletal: Musculoskeletal: Denies back pain and Denies neck pain Neurologic: Reports headache(s) and Denies weakness PMFSH Past Medical History Medical History COPD (chronic obstructive pulmonary disease) Surgical History Surgical History H/O tubal ligation Social History Social History Smoking packs per day: 1 Smoking cigarettes per day: 20.0 Years smoked: 50 Smoking pack-years: 50.00 Smoking status: Current every day smoker Alcohol intake: never Substance use: current Substance use type: marijuana Gender identity (if verbalized by the patient): Female Spiritual care concerns: No Exam Const: General: no acute distress and well developed Orientation/consciousness: oriented to person, oriented to place, oriented to time and patient oriented x3 HENMT: Head: normocephalic Ears: external ears normal General nose exam: Normal external nose present Eyes: General: appearance normal, both eyes and all related structures Conjunctivae: conjunctivae normal Neck: Neck: normal visual inspection and full ROM Chest: Chest palpation & inspection: normal inspection of the chest and no tenderness Resp: Effort & Inspection: normal respiratory effort Auscultation: clear to auscultation bilaterally Cardio: Rate: regular rate Rhythm: regular rhythm GI: GI Palp: No abdominal tenderness and Yes Soft to palpation Skin: General skin exam: normal color and turgor normal Neuro: General: oriented to person, oriented to place, oriented to time and patient oriented x3 Cognition (Neuro): normal cognition Extrem: General: normal to inspection, full ROM and no pedal edema Psych: Appearance: grossly normal Mental Status: mental status grossly normal Affect: normal affect Course Consultations Consultation #1: Discussed with Dr. Lazar, who agrees to admit. Date: 03/01/21 Time: 20:46 Vital Signs Vital signs: Vital Signs Pulse Rate 67 03/01/21 07:03 Respiratory Rate 18 03/01/21 07:03 Blood Pressure 115/76 03/01/21 07:03 Pulse Oximetry 95 03/01/21 07:03 Temperature 36.6 C 03/02/21 12:00 Pulse Rate 81 03/02/21 12:00 Respiratory Rate 18 03/02/21 12:00 Blood Pressure 116/59 L 03/02/21 12:00 Pulse Oximetry 93 03/02/21 12:00 Medical Decision Making Vital Signs Vital Signs: Vital Signs Pulse Rate 67 03/01/21 07:03 Respirator
[2021-03-01 14:59] LABS: Basophils Percent Auto 0.5 % (0.2-1.2); Eosinophils Percent Auto 0.5 % (0-4.4); Hematocrit 38.9 % (37.0-47.0); Immature Granulocyte Absolute 0.01 K/mm3 (0.00-0.031); Immature Granulocyte Percent A 0.5 % (0-0.5); Immature Platelet Fraction Pct 18.1 % (0.9-11.2); Lymphocytes Absolute Auto 0.48 K/mm3 (0.9-3.2); Lymphocytes Percent Auto 23.1 % (18.3-44.2); Mean Corpuscular Volume 86.1 fl (80-100); Monocytes Absolute Auto 0.3 K/mm3 (0.1-0.6); Neutrophils Absolute Auto 1.3 K/mm3 (1.3-6.7); Neutrophils Percent Auto 63.4 % (45.5-73.1); Platelet Count Result 67 k/mm3 (150-375); Red Blood Count 4.52 M/mm3 (4.2-5.4); Red Cell Distribution Width 12.2 % (11.5-14.5)
[2021-03-01 15:07] LABS: White Blood Count 2.1 K/mm3 (4.5-10.0)
[2021-03-01 15:09] LABS: Alanine Aminotransferase 20 U/L (4-35); Albumin Level 4.1 g/dL (3.5-5.1); Alkaline Phosphatase 56 U/L (38-126); Anion Gap 8 mmol/L (8-16); Aspartate Amino Transferase 46 U/L (14-36); Bilirubin,Total 0.4 mg/dL (0.2-1.3); Blood Urea Nitrogen 15 mg/dL (7-17); Calcium 8.9 mg/dL (8.4-10.2); Carbon Dioxide 28 mmol/L (22-30); Chloride 90 mmol/L (98-107); Creatine Kinase 134 U/L (30-135); Estimated CRCL calculation 53 ml/min; Estimated Glomerular Filt Rate > 60; Glucose 113 mg/dL (65-110); Lipase 97 U/L (23-300); Sodium 126 mmol/L (137-145)
[2021-03-01] MEDS: ALBUTEROL SULFATE NEB 2.5 MG/0.5 ML INH INHALATION (15:10)
[2021-03-01] MEDS: IPRATROPIUM BR 0.02% INH SOLN 0.5 MG/2.5 ML VIAL INHALATION (15:10)
[2021-03-01] MEDS: SODIUM CHLORIDE 0.9% IV 1,000 ML 999 ML IV CONT (15:37)
[2021-03-01] MEDS: ONDANSETRON INJ 4 MG/2 ML VIAL IV PUSH (15:38)
--- NOTE | 2021-03-01 16:22 | PC.NURSE ---
Patient states she is still unable to urinate. Patient aware of the need to give urine specimen and does not wish to have catheter placed.
[2021-03-01 18:14] LABS: Add Urine Microscopic? YES; Appearance Urine Clear (Clear); Bacteria Urine Trace /hpf; Bilirubin Urine Negative (Negative); Blood Urine Negative (Negative); Color Urine Yellow (Yellow); Glucose Urine UA Negative (Negative); Ketones Urine 1+ mg/dL (Negative); Leukocyte Esterase Ur Negative LEU/UL (Negative); Mucus Urine Few /lpf; Nitrate Urine Negative (Negative); Protein Urine Negative (Negative); RBC Urine 0-2 /hpf (0-2); Specific Grav Ur 1.013 (1.001-1.035); Squamous Epithelial Cell Urine Few /hpf (Few); Urobilinogen Urine Negative mg/dL (<2.0); WBC Urine 0-3 /hpf
--- NOTE | 2021-03-01 19:34 | PC.NURSE ---
Assumed care of pt at this time, pt is alert and on stretcher - placed back on tele monitor. Discussed POC.
[2021-03-01 20:23] LABS: EDCOVIDSCREEN Positive (Negative)
[2021-03-02] VITALS: BP 111/68; PULSE 82; RESP 18; TEMP 36.6; O2SAT 95
[2021-03-02 02:14] VITALS: BMI 22.5
--- NOTE | 2021-03-02 02:16 | PC.NURSE ---
This patient, Anushka Plascencia, was admitted to 3 [facility] Surg Room 320-01. Patient/family oriented to hospital policies and general routines including ID bracelet, bed and alarms, visiting hours, pain management, procedures, bathroom and other care routines, personal items, smoking policy, room service/diet, and visiting hours. Information on how to activate the Rapid Response Team has been discussed. Patient/Family are encouraged to report perceived risks to care and to ask questions if they do not understand what they are told or what they should do.
[2021-03-02 02:19] VITALS: O2SAT 93
--- NOTE | 2021-03-02 03:45 | PM.IMHP ---
H&P: HPI History of Present Illness Date/Time: 03/02/21 03:45 Chief Complaint: Shortness of breath. Narrative: This is a 71-year-old female with past medical history significant for tobacco dependence, COPD/emphysema, patient is a current everyday smoker. She presented to the emergency room due to shortness of breath for the last several days, poor appetite, chills, fevers ,body aches and pains, generalized malaise, has had also some nausea, vomiting and diarrhea, patient is not vaccinated against COVID and has a several family members that have tested positive for COVID. Patient had her daughter test her pulse oximetry it at home and she had an oxygen saturation of 88% to 92% which prompted her to come to the emergency room. In emergency room patient was placed on supplemental oxygen by nasal cannula, a rapid COVID test was positive. Chemistry panel was significant for sodium 126, chloride 90 creatinine 0.6, CBC was significant for white count of 2,000, chest x-ray was significant for severe hyper inflection and emphysema no infiltrates were present. The patient has been admitted for further evaluation, management and treatment. Review of Systems Review of Systems: Shortness of breath, cough, productive of scanty sputum, no change in sputum quality, generalized malaise body aches and pains nausea vomiting diarrhea poor appetite low pulse ox Constitutional: Constitutional: Reports chills, Reports fatigue, Reports fever(s), Reports lethargy, Reports malaise, Reports night sweats and Reports poor appetite Eyes: Eyes: Denies change in vision ENT: Denies dysphagia, Denies nasal congestion, Denies nasal discharge, Denies nasal obstruction and Denies odynophagia Cardiovascular: Cardiovascular: Denies pedal edema, Denies leg edema, Denies radiating jaw, neck or arm pain, Denies palpitations, Denies dyspnea on exertion and Denies orthopnea Respiratory: Respiratory: Denies change in phlegm color, Reports cough and Reports dyspnea Comments: Scanty sputum production Gastrointestinal: Gastrointestinal: Denies abdominal pain, Denies dyspepsia, Denies heartburn, Reports diarrhea, Reports nausea and Reports vomiting Genitourinary: Genitourinary: Denies dysuria Musculoskeletal: Musculoskeletal: Denies back pain, Reports myalgias, Denies arthralgias and Denies joint swelling Integumentary/Breasts: Skin/Breast: Denies rash Neurologic: Denies focal weakness and Denies Sensory deficit (Neuro) Psychiatric: Psychiatric: Reports no additional psychiatric complaints and Reports as per HPI Endocrine: Endocrine: Denies cold intolerance, Denies excessive sweating, Denies heat intolerance, Denies polydipsia, Denies polyuria and Denies palpitations Hematologic/Lymphatic: Hematologic/Lymphatic: Reports no additional hematologic/lymphatic complaints and Reports as per HPI Allergic/Immunologic: Allergic/Immunologic: Reports no additional allergic/immunologic complaints and Reports as per HPI PMFSH Past Medical History Medical History COPD (chronic obstructive pulmonary disease) Surgical History Surgical History H/O tubal ligation Social History Social History Smoking packs per day: 1 Smoking cigarettes per day: 20.0 Years smoked: 50 Smoking pack-years: 50.00 Smoking status: Current every day smoker Alcohol intake: never Substance use: current Substance use type: marijuana Gender identity (if verbalized by the patient): Female Spiritual care concerns: No Meds Home Medications and Allergies Home Medications Medication Instructions Recorded Confirmed Type albuterol sulfate 2.5 mg INHALATION PRN PRN 10/27/20 03/02/21 History fluticasone fur. 200 mcg-umeclid 1 inh INHALATION DAILY #1 ea 01/05/21 03/02/21 Rx 62.5 mcg-vilant 25 mcg inhalat.powder budesonide-formoterol [
[2021-03-02 04:00] VITALS: BP 123/76; PULSE 89; RESP 18; TEMP 36.4; O2SAT 98
--- NOTE | 2021-03-02 04:38 | PC.NURSE ---
Pt walked to bathroom with tech. Pt has PRN oxygen 1L, but no extension tubing. While pt was in bathroom, tech ran to get extension tubing. Pt proceeded to get up and walk back to bed. Pt stated I felt extremely short of breath so I sat down on the floor so I did not fall.
[2021-03-02] MEDS: methylPREDNISolone SOD SUCC 125 MG VIAL 60 MG IV PUSH ×2 (05:53→11:57)
[2021-03-02 08:00] VITALS: BP 133/77; PULSE 84; RESP 18; TEMP 36.6; O2SAT 92; O2SAT 95
[2021-03-02] MEDS: FLUTICASONE/UMECLIDIN/VILANTER 200-62.5-25 MCG ELLIPTA 1 PUFF INHALATION (10:12)
[2021-03-02] MEDS: ALBUTEROL SULFATE NEB 2.5 MG/3 ML INH INHALATION (10:12)
[2021-03-02 12:00] VITALS: BP 116/59; PULSE 81; RESP 18; TEMP 36.6; O2SAT 93
--- NOTE | 2021-03-02 14:30 | PM.DS ---
DS: Admitting Diagnosis Discharge Date 03/02/2021 Admitting Diagnosis SOB DS: Discharge Diagnosis Discharge Diagnosis (1) Nausea vomiting and diarrhea: Code(s): R11.2 - Nausea with vomiting, unspecified; R19.7 - Diarrhea, unspecified Status: Resolved Assessment and Plan: After fluid hydration, vomiting is better and has resolved (2) Acute hyponatremia: Code(s): E87.1 - Hypo-osmolality and hyponatremia Status: Acute Assessment and Plan: Sodium is 126 today. Secondary to covid infection. Pt feels much better advised to drink plenty of fluids and have rpt BMP in 2 weeks time (3) COVID-19 determined by clinical diagnostic criteria: Code(s): U07.1 - COVID-19 Status: Acute Assessment and Plan: Pt advised to quarantine, for 10 days until 03/11/2021 Complete 10 days of steroids. (4) COPD with exacerbation: Code(s): J44.1 - Chronic obstructive pulmonary disease with (acute) exacerbation Status: Acute Assessment and Plan: Pt to continue on inhalers and nebulizers at home (5) Current smoker: Code(s): F17.200 - Nicotine dependence, unspecified, uncomplicated Status: Acute Assessment and Plan: Pt advised to quit smoking on discharge DS: Summary Hospital Course Hospital Course: 71-year-old female with past medical history significant for tobacco dependence, COPD/emphysema, patient is a current everyday smoker. Found to have covid infection started on iv steroids feels much better off oxygen. Pt found to have sodium 126 pt having fluid hydration with fluids advised can go home and drink plenty of water. Time Spent with Patient Time attestation: Total time spent providing and/or coordinating discharge services:40 minutes on day of discharge Exam Const: General: well developed Nutritional Appearance: well nourished Eyes: General: appearance normal, both eyes and all related structures Pupils: Equal, round and reactive pupils present Chest: Chest palpation & inspection: normal inspection of the chest Resp: Effort & Inspection: normal respiratory effort Auscultation: clear to auscultation bilaterally Cardio: Jugular venous distension: no JVD Rhythm: regular rhythm Heart sounds: S1 normal heart sound present and S2 normal heart sound present GI: Inspection: normal to inspection GI Palp: No abdominal tenderness, Yes Soft to palpation and No Tenderness to palpation present (GI) Auscultation: normal bowel sounds Skin: General skin exam: normal color and dry skin Neuro: Cranial nerves: Yes CN's II-XII intact bilaterally and Yes Equal, round and reactive pupils present Cognition (Neuro): normal cognition Speech: normal speech Motor exam (neuro): 5/5 motor strength present throughout Extrem: General: normal to inspection Psych: Appearance: grossly normal Mental Status: mental status grossly normal DS: Data Data Completed and Pending Labs on day of discharge: Labs from last 24 hours 03/01/21 03/01/21 03/01/21 20:06 17:50 14:50 WBC RBC Hgb Hct MCV MCH MCHC RDW Plt Count MPV Immature Gran % (Auto) Neut % (Auto) Lymph % (Auto) [place] % (Auto) Eos % (Auto) Baso % (Auto) Lymph # (Auto) [place] # (Auto) Eos # (Auto) Baso # (Auto) Abs Immat Gran (auto) Absolute Neuts (auto) Absolute Nucleated RBC Nucleated RBC % % Immature Plt Fraction Sodium 126 L Potassium 4.0 Chloride 90 L Carbon Dioxide 28 Anion Gap 8 BUN 15 Creatinine 0.60 L Estim Creat Clear Calc 53 Estimated GFR > 60 Glucose 113 H Calcium 8.9 Total Bilirubin 0.4 AST 46 H ALT 20 Alkaline Phosphatase 56 Total Creatine Kinase 134 Total Protein 7.0 Albumin 4.1 Lipase 97 Urine Color Yellow Urine Appearance Clear Urine pH 6.0 Ur Specific [place] 1.013 Urine Protein Negative Urine Glucose (UA) Negative Urine
== END 2021-03-02 15:18 | disposition home or self-care (01) | DRG 178 ==
LOC: ANHED 15:18 → ANH3MEDSUR 21:34
PROVIDERS: Admitting Provider Internal Medicine; Emergency Provider Emergency Medicine; PCP Physician Assistant; Visit Provider Family Medicine
DX: U07.1 COVID-19 (principal); E87.1 Hypo-osmolality and hyponatremia; J43.9 Emphysema, unspecified; F17.210 Nicotine dependence, cigarettes, uncomplicated; R11.2 Nausea with vomiting, unspecified; R19.7 Diarrhea, unspecified; Z28.21 Immunization not carried out because of patient refusal; Z79.899 Other long term (current) drug therapy
CPT/HCPCS: 36415; 71045; 80053; 81001; 82550; 83690; 85025; 85055; 87426; 93005; 94640; 96361; 96374; 96375; 96376; 99285; A9270; C9803; G0378; J1100; J2405; J2930; J7030

== ENCOUNTER 2021-06-29 11:06 | Outpatient (CLI) | payer MEDICARE, MEDICAID, SELFPAY ==
--- NOTE | ~2021-06-29 | CT_ITS ---
EXAMINATION: CT lung screening DATE: 06/29/2021 11:23 INDICATION: Z87.891 - Personal history of nicotine dependence TECHNIQUE: Computed tomography (CT) of the chest was performed without intravenous contrast. Addition al 3D reconstructions utilizing coronal maximum intensity projection (MIP) were performed. Automated exposure control and iterative reconstruction technique were employed. The dose-length product was 58 .44 mGy-cm. COMPARISON: 05/29/2020 FINDINGS: Mild emphysema. There are few scattered bilateral small calcified pulmonary nodules along with calcif ied bilateral hilar and mediastinal lymph nodes consistent with old granulomatous disease. Again seen is scattered mild bronchiectatic changes in both lungs. There are multiple scattered 4 mm smaller pu lmonary nodules a few of which appear to likely represent mucous plugging within a few of the smaller subsegmental bronchi. These are clustered in the right middle lobe and lingula to a lesser degree in the superior segment of the right lower lobe. The majority of the small nodules are unchanged althou gh a few in the right middle lobe are new since the prior study. No pulmonary edema or pleural effusi on. There is also a new small region of tree-in-bud opacity with several tiny centrilobular nodules i n the anterobasilar left lower lobe. Unchanged 3 mm and 4 mm pleural-based nodules in the superior se gment of the left lower lobe. Heart size is normal. Atherosclerotic coronary artery calcification. No pericardial effusion. No pathologically enlarged thoracic lymphadenopathy. Thoracic aorta is normal in caliber. Several splenic calcifications consistent with old granulomatous disease. Mild upper thor acic dextrocurvature with mild spondylosis. IMPRESSION: 1. Lung-RADS category 2: Benign appearance or behavior. Continue annual screening with noncontrast lo w-dose chest CT in 12 months. Reviewed, dictated and finalized at location A. IMPRESSION: 1. Lung-RADS category 2: Benign appearance or behavior. Continue annual screeni ng with noncontrast low-dose chest CT in 12 months.
== END 2021-06-29 11:07 | disposition home or self-care (01) ==
LOC: ANHIMG 11:09
PROVIDERS: PCP Physician Assistant; Visit Provider Physician Assistant
DX: Z87.891 Personal history of nicotine dependence (principal)
CPT/HCPCS: 71271

== ENCOUNTER 2021-11-29 13:06 | Emergency (ER) | payer MEDICARE, MEDICAID, SELFPAY ==
[2021-11-29] VITALS (7 sets, daily range): BP systolic 144–179; BP diastolic 94–103; PULSE 92–132; RESP 16–28; TEMP 36.8; O2SAT 97–100
--- NOTE | ~2021-11-29 | CT_ITS ---
EXAMINATION: CTA chest PE protocol DATE: 11/29/2021 14:51 INDICATION: Shortness of breath. TECHNIQUE: Computed tomography angiography (CTA) of the chest was performed with 100 mL Omnipaque-350 intravenous contrast timed to evaluate the pulmonary arteries. Coronal maximum intensity projection 3D-reconstructions were created by the technologist. Automated exposure control and iterative reconst ruction technique were employed. The dose-length product was 142.43 mGy-cm. COMPARISON: Chest CT 06/29/2021 FINDINGS: There is moderate emphysema. Calcified bilateral lung nodules and calcified hilar and media stinal lymph nodes are consistent with old granulomatous disease. Again seen are two 5 mm nodules in left lower lobe, likely benign. There are tree-in-bud opacities in left lower lobe, lingula, and righ t middle lobe. There are mild airspace opacities in lingula and right lower lobe. There is material i n bronchi in right lower lobe. There is mild bronchiectasis in the inferior lungs. No pleural effusio n. The heart size is normal. There are coronary artery calcifications. There is no pulmonary embolus. There are changes of cholecystectomy. Calcifications in the spleen are consistent with old granuloma tous disease. There is mild thoracic spondylosis. There is dextroscoliosis of upper thoracic spine. IMPRESSION: 1. No pulmonary embolus. 2. Mild pneumonia in the inferior lungs. 3. Moderate emphysema. Reviewed, dictated and finalized at location A.
--- NOTE | ~2021-11-29 | XR_ITS ---
EXAMINATION: XR chest 2V DATE: 11/29/2021 13:59 INDICATION: Shortness of breath. Productive cough. TECHNIQUE: Frontal and lateral views of the chest were obtained. COMPARISON: Chest single view 03/01/2021, chest CT 06/29/2021 FINDINGS: The lungs are hyperexpanded, consistent with emphysema. Calcified pulmonary nodules are con sistent with old granulomatous disease. No pleural effusion or pneumothorax. The heart size is normal . IMPRESSION: 1. Emphysema. Reviewed, dictated and finalized at location B. IMPRESSION: 1. Emphysema.
--- NOTE | 2021-11-29 13:29 | ECG_ITS ---
Measurements Intervals [place] Rate: 109 P: 81 OR: 116 QRS: 75 QRSD: 85 T: -76 QT: 295 QTc: 398 Interpretive Statements SINUS TACHYCARDIA WITH SHORT OR INTERVAL WITH OCCASIONAL SUPRAVENTRICULAR PREMATURE COMPLEXES ST AND T-WAVE ABNORMALITY IN INFERIOR AND ANTEROLATERAL LEADS CONSIDER MYOCARDIAL ISCHEMIA ABNORMAL ECG COMPARED TO ECG 03/01/2021 14:48:27 HEART RATE HAS INCREASED AND ST ABNORMALITIES ARE NEW Electronically Signed On 11-29-2021 17:15:36 CDT by Jamie Marquez M.D.
[2021-11-29 14:04] LABS: Basophils Absolute Auto 0.1 K/mm3 (0.0-0.1); Basophils Percent Auto 0.8 % (0.2-1.2); Eosinophils Absolute Auto 0.1 K/mm3 (0-0.3); Eosinophils Percent Auto 2.2 % (0-4.4); Hematocrit 40.4 % (37.0-47.0); Hemoglobin 13.4 g/dL (12.0-15.0); Immature Granulocyte Absolute 0.02 K/mm3 (0.00-0.031); Immature Granulocyte Percent A 0.3 % (0-0.5); Lymphocytes Absolute Auto 1.02 K/mm3 (0.9-3.2); Lymphocytes Percent Auto 16.4 % (18.3-44.2); Mean Corpuscular HGB Conc 33.2 g/dl (32-36); Mean Corpuscular Hemoglobin 30.8 pg (26-34); Mean Corpuscular Volume 92.9 fl (80-100); Mean Platelet Volume 11.5 fl (7.4-10.4); Monocytes Absolute Auto 0.4 K/mm3 (0.1-0.6); Monocytes Percent Auto 5.6 % (2.6-8.5); Neutrophils Absolute Auto 4.7 K/mm3 (1.3-6.7); Neutrophils Percent Auto 74.7 % (45.5-73.1); Platelet Count Result 181 k/mm3 (150-375); Red Blood Count 4.35 M/mm3 (4.2-5.4); Red Cell Distribution Width 12.4 % (11.5-14.5); White Blood Count 6.2 K/mm3 (4.5-10.0)
[2021-11-29 14:18] LABS: Alanine Aminotransferase 17 U/L (6-35); Albumin Level 4.3 g/dL (3.5-5.1); Alkaline Phosphatase 70 U/L (38-126); Anion Gap 10 mmol/L (8-16); Aspartate Amino Transferase 25 U/L (14-36); Bilirubin,Total 0.5 mg/dL (0.2-1.3); Blood Urea Nitrogen 10 mg/dL (7-17); Calcium 9.3 mg/dL (8.4-10.2); Carbon Dioxide 28 mmol/L (22-30); Chloride 101 mmol/L (98-107); Estimated CRCL calculation 48 ml/min; Estimated Glomerular Filt Rate > 60; Glucose 99 mg/dL (65-110); Potassium 3.6 mmol/L (3.4-5.0); Sodium 139 mmol/L (137-145)
--- NOTE | 2021-11-29 14:38 | ED.SOB ---
HPI - SOB/Dyspnea General Chief Complaint: Shortness of Breath/Dyspnea <CHAPINCITO Palmer Last Filed: 11/29/21 22:17> Stated Complaint: shortness of breath - hx COPD <CHAPINCITO Palmer Last Filed: 11/29/21 22:17> Time Seen by Provider: 11/29/21 14:21 <CHAPINCITO Palmer Last Filed: 11/29/21 22:17> History of Present Illness HPI Narrative: Patient is a 71-year-old female with a history of COPD here for evaluation of shortness of breath. Patient states that she has felt short of breath over the past several weeks, most notably with exertion but she is now short of breath at rest. Additionally notes some upper respiratory infectious type symptoms, with rhinorrhea, congestion, productive cough with green sputum. No hemoptysis. Patient reporting some chronic chest pain over the past 6 months, has been seen by her PCP, had nuclear stress test done in August which she tells me was abnormal, and she was recommended to have a heart cath but she has never had this procedure done. Per chart review patient's stress test was normal. Has seen Dr. Altamirano in the past. Denies leg swelling, fevers, chills, abdominal pain, nausea, vomiting. <CHAPINCITO Palmer Last Filed: 11/29/21 22:17> Related Data Home Medications: Home Medications Medication Instructions Recorded Confirmed albuterol sulfate 2.5 mg/3 mL 2.5 mg inhalation PRN PRN Wheezing 10/27/20 03/21/21 (0.083 %) solution for nebulization budesonide-formoterol HFA 160 2 puff inhalation Q12H 03/02/21 03/21/21 mcg-4.5 mcg/actuation aerosol inhaler (Symbicort) <CHAPINCITO Palmer Last Filed: 11/29/21 22:17> Allergies/Adverse Reactions: Allergies Allergy/AdvReac Type Severity Reaction Status Date / Time levofloxacin [From Levaquin] Allergy Palpitation Verified 11/29/21 14:19 s <CHAPINCITO Palmer Filed: 11/29/21 22:17> Review of Systems Review of Systems: Gen.: Denies fevers or chills Eyes: Denies eye pain or visual change ENT: Reports congestion and rhinorrhea Respiratory: Reports shortness of breath and cough. CV: Reports chest pain. Denies palpitations GI: Denies abdominal pain nausea, emesis or diarrhea denies burning, urgency, frequency or hematuria Musculoskeletal: Denies back pain or muscle pain Neuro: Denies numbness, tingling, weakness or focal weakness Skin: Denies rash Except as documented, all other systems reviewed and negative <Shyla Mcdowell PA-C - Last Filed: 11/29/21 22:17> [facility] Past Medical History Medical History: Medical History COPD (chronic obstructive pulmonary disease) <Shyla Mcdowell PA-C - Last Filed: 11/29/21 22:17> Surgical History Surgical History: Surgical History H/O tubal ligation <Shyla Mcdowell PA-C - Last Filed: 11/29/21 22:17> Social History Social History: Social History Smoking packs per day: 1 Smoking cigarettes per day: 20.0 Years smoked: 50 Smoking pack-years: 50.00 Smoking status: Current every day smoker Alcohol intake: never Substance use: current Substance use type: marijuana Gender identity (if verbalized by the patient): Female Spiritual care concerns: No <Shyla Mcdowell PA-C - Last Filed: 11/29/21 22:17> Exam Narrative: APPEARANCE: Thin, appears older than stated age Head: Normocephalic and atraumatic. EYES: PERRLA/EOMI, conjunctivae clear NOSE: No nasal drainage EARS: External ear normal in appearance THROAT: Oropharynx is clear. Mucous membranes are moist. NECK: Supple. No adenopathy, no masses. RESPIRATORY: Expiratory wheezes throughout upper and lower lung berman. Coughing throughout exam. CARDIOVASCULAR: Tachycardic. Regular rhythm
[2021-11-29 15:02] LABS: SARS-CoV-2 RNA PCR Negative
[2021-11-29] MEDS: ALBUTEROL SULFATE NEB 2.5 MG/3 ML INH INHALATION (15:05)
[2021-11-29 15:18] LABS: NT Pro B Type Natriuretic Pept 339 pg/mL (5-100); Troponin I < 0.012 ng/mL (0.000-0.034)
[2021-11-29] MEDS: methylPREDNISolone SOD SUCC 125 MG VIAL IV PUSH (16:00)
--- NOTE | 2021-11-29 16:19 | PCRCNOTE ---
ABG ORDERED. Patient refusing, Doctor notified
[2021-11-29 18:11] LABS: Lactic Acid Reflex 1.8 mmol/L (0.7-2.0)
[2021-11-29 18:38] LABS: Troponin I < 0.012 ng/mL (0.000-0.034)
== END 2021-11-29 19:06 | disposition left against medical advice (07) ==
PROVIDERS: Emergency Medicine; Physician Assistant; Emergency Provider Preventive Medicine Aerospace Medicine
DX: J44.9 Chronic obstructive pulmonary disease, unspecified (principal); F17.210 Nicotine dependence, cigarettes, uncomplicated; F12.90 Cannabis use, unspecified, uncomplicated; Z79.51 Long term (current) use of inhaled steroids; Z20.822 Contact with and (suspected) exposure to COVID-19
CPT/HCPCS: 36415; 71046; 71275; 80053; 83605; 83880; 84484; 85025; 93005; 94640; 96365; 96367; 96375; 99284; C9803; J0456; J0696; J2930; Q9967; U0003; U0005